=== PATIENT | male | born 1985 | race African-American/Black ===

== ENCOUNTER 2021-07-14 17:02 | Observation (INO) | payer BC ==
[2021-07-14 17:41] VITALS: BMI 30.7
[2021-07-14 20:56] LABS: BASO % 0.9 % (0-2.0); EOS % 3.2 % (0-4.5); HEMATOCRIT 42.3 % (35.4-49); HEMOGLOBIN 14.1 GM/dL (11.7-16.9); LYMPH % 27.6 % (8-40); MCHC 33.4 g/dl (32.0-35.9); MEAN CELL VOLUME 86.9 fl (80-96); MEAN PLT VOLUME 8.2 fl (7.5-11.1); MONO % 9.9 % (3.8-10.2); NEUT % 58.4 % (42.8-82.8); PLATELET COUNT 317 10^3/uL (134-434); RBC 4.86 M/mm3 (4.00-5.60); RDW 13.6 % (11.9-15.9); WHITE BLOOD COUNT 8.6 K/mm3 (4.0-10.0)
[2021-07-14 21:03] LABS: INR 1.52 (0.83-1.09); PROTHROMBIN TIME (PATIENT) 17.6 SEC (9.7-13.0)
[2021-07-14 21:06] LABS: ACTIVATED PTT 36.7 SECONDS (25.2-36.5)
[2021-07-14 21:48] LABS: CALCIUM 9.2 mg/dL (8.5-10.1)
[2021-07-14 21:49] LABS: ALBUMIN 3.8 g/dl (3.4-5.0); BLOOD UREA NITROGEN 10.3 mg/dL (7-18)
[2021-07-14 21:54] LABS: BILIRUBIN,TOTAL 0.5 mg/dL (0.2-1)
[2021-07-14 21:55] LABS: TOT PROT 7.7 g/dl (6.4-8.2)
[2021-07-14] MEDS ORDERED: ENOXAPARIN NA (PORCINE) 120 MG/0.8 ML DISP.SYRIN SQ SCH (22:45)
[2021-07-14] MEDS ORDERED: ENOXAPARIN NA (PORCINE) 100 MG/1 ML DISP.SYRIN SQ SCH (23:03)
[2021-07-15] MEDS ORDERED: ENOXAPARIN NA (PORCINE) 100 MG/1 ML DISP.SYRIN SQ SCH (00:55)
[2021-07-15] MEDS ORDERED: ENOXAPARIN NA (PORCINE) 100 MG/1 ML DISP.SYRIN SQ ONE (01:43)
[2021-07-15] MEDS: ENOXAPARIN NA (PORCINE) 100 MG/1 ML DISP.SYRIN SQ SCH ×4 (01:48→22:58)
[2021-07-15] MEDS ORDERED: RIVAROXABAN 15 MG TABLET PO SCH (11:00)
[2021-07-15 18:05] LABS: INR 1.51 (0.83-1.09); PROTHROMBIN TIME (PATIENT) 17.4 SEC (9.7-13.0)
[2021-07-16 08:34] LABS: BASO % 1.2 % (0-2.0); EOS % 4.4 % (0-4.5); HEMATOCRIT 39.4 % (35.4-49); HEMOGLOBIN 13.2 GM/dL (11.7-16.9); LYMPH % 31.9 % (8-40); MCH 28.8 pg (25.7-33.7); MCHC 33.4 g/dl (32.0-35.9); MEAN CELL VOLUME 86.2 fl (80-96); NEUT % 50.5 % (42.8-82.8); PLATELET COUNT 298 10^3/uL (134-434); RBC 4.57 M/mm3 (4.00-5.60); RDW 13.8 % (11.9-15.9); WHITE BLOOD COUNT 6.1 K/mm3 (4.0-10.0)
[2021-07-16 08:59] LABS: CALCIUM 8.7 mg/dL (8.5-10.1)
[2021-07-16 09:00] LABS: BLOOD UREA NITROGEN 10.3 mg/dL (7-18); MAGNESIUM 2.2 mg/dL (1.8-2.4)
[2021-07-16 09:03] LABS: PHOSPHOROUS 3.8 mg/dL (2.5-4.9)
[2021-07-16] MEDS: ENOXAPARIN NA (PORCINE) 100 MG/1 ML DISP.SYRIN SQ SCH ×2 (09:31→21:28)
[2021-07-17 08:35] LABS: BASO % 0.9 % (0-2.0); EOS % 3.8 % (0-4.5); LYMPH % 26.9 % (8-40); MCH 29.3 pg (25.7-33.7); MCHC 34.1 g/dl (32.0-35.9); MEAN PLT VOLUME 7.9 fl (7.5-11.1); MONO % 10.1 % (3.8-10.2); NEUT % 58.3 % (42.8-82.8); PLATELET COUNT 284 10^3/uL (134-434); RBC 4.77 M/mm3 (4.00-5.60); RDW 13.6 % (11.9-15.9); WHITE BLOOD COUNT 5.9 K/mm3 (4.0-10.0)
[2021-07-17 09:09] LABS: CALCIUM 9.2 mg/dL (8.5-10.1)
[2021-07-17 09:10] LABS: BLOOD UREA NITROGEN 9.4 mg/dL (7-18); MAGNESIUM 2.1 mg/dL (1.8-2.4)
[2021-07-17 09:13] LABS: CREATININE 1.1 mg/dL (0.55-1.3); PHOSPHOROUS 3.1 mg/dL (2.5-4.9)
[2021-07-17] MEDS: ENOXAPARIN NA (PORCINE) 100 MG/1 ML DISP.SYRIN SQ SCH ×2 (10:14→21:48)
[2021-07-18] MEDS ORDERED: LIDOCAINE HCL 1%, 10 MG/ML (20ML VIAL) ONE (07:49)
[2021-07-18] MEDS ORDERED: HEPARIN NA (PORCINE) 5,000 UNITS/ML 1ML VIAL ONE (07:50)
[2021-07-18 09:05] LABS: BASO % 0.8 % (0-2.0); EOS % 3.3 % (0-4.5); HEMATOCRIT 41.7 % (35.4-49); HEMOGLOBIN 13.9 GM/dL (11.7-16.9); MCHC 33.4 g/dl (32.0-35.9); MEAN CELL VOLUME 86.9 fl (80-96); MEAN PLT VOLUME 8.4 fl (7.5-11.1); MONO % 9.4 % (3.8-10.2); NEUT % 57.5 % (42.8-82.8); PLATELET COUNT 305 10^3/uL (134-434); RBC 4.79 M/mm3 (4.00-5.60); RDW 13.7 % (11.9-15.9); WHITE BLOOD COUNT 5.9 K/mm3 (4.0-10.0)
[2021-07-18] MEDS: ENOXAPARIN NA (PORCINE) 100 MG/1 ML DISP.SYRIN SQ SCH ×2 (09:12→22:13)
[2021-07-18 09:49] LABS: CALCIUM 9.1 mg/dL (8.5-10.1)
[2021-07-18 09:50] LABS: BLOOD UREA NITROGEN 10.9 mg/dL (7-18); MAGNESIUM 2.1 mg/dL (1.8-2.4)
[2021-07-18 09:52] LABS: PHOSPHOROUS 3.7 mg/dL (2.5-4.9)
[2021-07-18 10:07] LABS: PROTEIN S FREE 23 % (61-136)
[2021-07-19 08:43] LABS: HEMATOCRIT 41.6 % (35.4-49); HEMOGLOBIN 13.7 GM/dL (11.7-16.9); MCH 28.6 pg (25.7-33.7); MCHC 32.8 g/dl (32.0-35.9); MEAN CELL VOLUME 87.2 fl (80-96); MEAN PLT VOLUME 8.1 fl (7.5-11.1); PLATELET COUNT 281 10^3/uL (134-434); RBC 4.78 M/mm3 (4.00-5.60); RDW 13.6 % (11.9-15.9); WHITE BLOOD COUNT 5.6 K/mm3 (4.0-10.0)
[2021-07-19 08:58] LABS: CALCIUM 9.1 mg/dL (8.5-10.1)
[2021-07-19 08:59] LABS: BLOOD UREA NITROGEN 11.7 mg/dL (7-18); MAGNESIUM 2.1 mg/dL (1.8-2.4)
[2021-07-19 09:02] LABS: PHOSPHOROUS 3.4 mg/dL (2.5-4.9)
[2021-07-19 10:59] LABS: ANISOCYTOSIS 0; HELMET CELLS 0; HOWELL-JOLLY BODIES 0; MACROCYTOSIS 0; OVALOCYTE 0; ROULEAU 0; SICKELED CELLS 0; TARGET CELLS 0; TEAR DROP CELLS 0; TOXIC GRANULATION 0
[2021-07-19] MEDS: ENOXAPARIN NA (PORCINE) 100 MG/1 ML DISP.SYRIN SQ SCH ×2 (11:45→22:58)
[2021-07-20 08:30] LABS: BASO % 0.7 % (0-2.0); EOS % 3.5 % (0-4.5); HEMATOCRIT 40.8 % (35.4-49); HEMOGLOBIN 14.1 GM/dL (11.7-16.9); LYMPH % 32.9 % (8-40); MCH 29.5 pg (25.7-33.7); MCHC 34.5 g/dl (32.0-35.9); MEAN CELL VOLUME 85.6 fl (80-96); MEAN PLT VOLUME 7.9 fl (7.5-11.1); MONO % 10.5 % (3.8-10.2); NEUT % 52.4 % (42.8-82.8); PLATELET COUNT 270 10^3/uL (134-434); RBC 4.77 M/mm3 (4.00-5.60); RDW 13.6 % (11.9-15.9); WHITE BLOOD COUNT 5.7 K/mm3 (4.0-10.0)
[2021-07-20 08:42] LABS: CALCIUM 9.1 mg/dL (8.5-10.1)
[2021-07-20 08:46] LABS: CREATININE 1.1 mg/dL (0.55-1.3); PHOSPHOROUS 3.5 mg/dL (2.5-4.9)
[2021-07-20] MEDS: ENOXAPARIN NA (PORCINE) 100 MG/1 ML DISP.SYRIN SQ SCH ×2 (09:22→22:53)
[2021-07-21 09:30] LABS: BASO % 0.9 % (0-2.0); EOS % 3.3 % (0-4.5); HEMATOCRIT 40.2 % (35.4-49); HEMOGLOBIN 13.9 GM/dL (11.7-16.9); LYMPH % 33.3 % (8-40); MCH 29.8 pg (25.7-33.7); MCHC 34.6 g/dl (32.0-35.9); MEAN PLT VOLUME 8.2 fl (7.5-11.1); MONO % 10.5 % (3.8-10.2); PLATELET COUNT 263 10^3/uL (134-434); RBC 4.68 M/mm3 (4.00-5.60); RDW 13.7 % (11.9-15.9); WHITE BLOOD COUNT 6.3 K/mm3 (4.0-10.0)
[2021-07-21 09:53] LABS: BLOOD UREA NITROGEN 16.1 mg/dL (7-18); CALCIUM 8.8 mg/dL (8.5-10.1)
[2021-07-21 09:55] LABS: PHOSPHOROUS 3.8 mg/dL (2.5-4.9)
[2021-07-21 09:56] LABS: CREATININE 1.2 mg/dL (0.55-1.3)
[2021-07-21] MEDS ORDERED: HEPARIN NA (PORCINE) 5,000 UNITS/ML 1ML VIAL ONE ×2 (12:37→14:41)
[2021-07-21] MEDS ORDERED: LIDOCAINE HCL 1%, 10 MG/ML (20ML VIAL) ONE (12:37)
[2021-07-21] MEDS ORDERED: LIDOCAINE HCL 1%, 10 MG/ML (20ML VIAL) NR ONE ×3 (13:17→14:16)
[2021-07-21] MEDS ORDERED: HEPARIN NA (PORCINE) 5,000 UNITS/ML 1ML VIAL SQ ONE ×2 (13:28→14:18)
[2021-07-21] MEDS ORDERED: PROPOFOL 20 ML ONE ×2 (13:43→13:44)
[2021-07-21] MEDS ORDERED: ROCURONIUM BROMIDE 50 MG/5 ML SYRINGE ONE ×2 (13:43)
[2021-07-21] MEDS ORDERED: MIDAZOLAM HCL 2 MG/2 ML SINGLE DOSE VIAL ONE ×4 (13:44→14:13)
[2021-07-21] MEDS ORDERED: IOHEXOL 300 MG/ML INFUS..BTL IV ONE (14:20)
[2021-07-21] MEDS ORDERED: ALTEPLASE (CATHFLO) 2 MG/2 ML VIAL CVP ONE (15:00)
[2021-07-21] MEDS ORDERED: ONDANSETRON 4 MG/2 ML VIAL IVPUSH PRN (16:03)
[2021-07-21] MEDS ORDERED: ACETAMINOPHEN INJECTION 100 ML IVPB ONE (17:44)
[2021-07-21] MEDS ORDERED: HYDROmorphone HCl 2 MG/ML VIAL ONE (17:44)
[2021-07-21] MEDS ORDERED: ACETAMINOPHEN 1000 MG/100 ML BAG IVPB PRN (18:41)
[2021-07-21] MEDS ORDERED: HYDROmorphone HCl 2 MG/ML VIAL IVPUSH PRN ×2 (18:41→18:42)
[2021-07-21] MEDS: oxyCODONE HCL 5 MG TABLET PO PRN (21:11)
[2021-07-21] MEDS: LACTATED RINGERS SOLUTION 1,000 ML IV SCH (22:51)
[2021-07-22 02:50] LABS: EPI CELLS 0 /uL (0-25.1); HYALINE CASTS 0 /uL (0-3.1); URINE APPEARANCE CLEAR; URINE BACTERIA 3 /uL (0-1359); URINE BILIRUBIN NEGATIVE (NEGATIVE); URINE COLOR YELLOW; URINE GLUCOSE (UA) NEGATIVE (NEGATIVE); URINE KETONE NEGATIVE (NEGATIVE); URINE LEUK ESTERASE NEGATIVE (NEGATIVE); URINE NITRITE NEGATIVE (NEGATIVE); URINE PROTEIN TRACE (NEGATIVE); URINE RBC 20 /uL (0-23.9); URINE UROBILINOGEN 0.2 mg/dL (0.2-1.0); URINE WBC 1 /uL (0-25.8)
[2021-07-22 08:58] LABS: BASO % 0.6 % (0-2.0); EOS % 2.6 % (0-4.5); HEMATOCRIT 37.8 % (35.4-49); LYMPH % 22.1 % (8-40); MCH 29.5 pg (25.7-33.7); MCHC 34.4 g/dl (32.0-35.9); MEAN CELL VOLUME 85.8 fl (80-96); MEAN PLT VOLUME 8.2 fl (7.5-11.1); MONO % 10.7 % (3.8-10.2); PLATELET COUNT 204 10^3/uL (134-434); RBC 4.41 M/mm3 (4.00-5.60); RDW 13.4 % (11.9-15.9); WHITE BLOOD COUNT 8.1 K/mm3 (4.0-10.0)
[2021-07-22 09:19] LABS: CALCIUM 8.7 mg/dL (8.5-10.1); MAGNESIUM 1.9 mg/dL (1.8-2.4)
[2021-07-22 09:21] LABS: BLOOD UREA NITROGEN 13.2 mg/dL (7-18)
[2021-07-22 09:24] LABS: PHOSPHOROUS 4.5 mg/dL (2.5-4.9)
[2021-07-22] MEDS: oxyCODONE HCL 5 MG TABLET PO PRN (09:56)
[2021-07-22] MEDS ORDERED: ENOXAPARIN NA (PORCINE) 100 MG/1 ML DISP.SYRIN SQ SCH (11:45)
[2021-07-22 14:30] VITALS: BP 125/60; PULSE 96; TEMP 98.8
[2021-07-22] MEDS: LACTATED RINGERS SOLUTION 1,000 ML IV SCH (17:45)
[2021-07-22] MEDS ORDERED: ENOXAPARIN NA (PORCINE) 100 MG/1 ML DISP.SYRIN SQ ONE (18:56)
== END 2021-07-22 19:40 | disposition home or self-care (01) ==
LOC: JER 17:02 → JERBED 22:41 → J7W 07-15 06:04
PROVIDERS: ADMIT Internal Medicine; ATTEND Internal Medicine
PROC: 047N3ZZ Dilation of Left Popliteal Artery, Percutaneous Approach (ICD-10-PCS; principal; 2021-07-14)
PROC: 04FN3Z0 Fragmentation of Left Popliteal Artery, Percutaneous Approach, Ultrasonic (ICD-10-PCS; 2021-07-14)
PROC: 3E033NZ Introduction of Analgesics, Hypnotics, Sedatives into Peripheral Vein, Percutaneous Approach (ICD-10-PCS; 2021-07-14)
PROC: 3E023GC Introduction of Other Therapeutic Substance into Muscle, Percutaneous Approach (ICD-10-PCS; 2021-07-14)
DX: I82.409 Acute embolism and thrombosis of unspecified deep veins of unspecified lower extremity (principal); Z86.718 Personal history of other venous thrombosis and embolism; E66.9 Obesity, unspecified; Z68.30 Body mass index [BMI] 30.0-30.9, adult; D68.59 Other primary thrombophilia; Z91.14 Patient's other noncompliance with medication regimen
CPT/HCPCS: 0505T; 36593; 96372; 96374; 96375; 36415; 71046-TC-FY; 71275-TC; 76000-TC-FY; 80048; 80053; 81003; 83735; 84100; 84484; 85025; 85305; 85306; 85610; 85730; 93005; 93010; 93971-TC; 94760; 99285-25; C9803-CS; G0378; J1644; J2997; Q9967; U0003; U0005

== ENCOUNTER 2022-08-13 20:50 | Inpatient (IN) | payer BC ==
[2022-08-13] MEDS ORDERED: SULFAMETHOXAZOLE/TRIMETHOPRIM 800MG/160MG D.S. TABLET PO ONE (22:29)
[2022-08-13] MEDS ORDERED: SULFAMETHOXAZOLE/TRIMETHOPRIM 800MG/160MG D.S. TABLET ONE (22:36)
[2022-08-13 23:21] LABS: HEMATOCRIT 52.3 % (35.4-49); HEMOGLOBIN 17.4 G/dL (11.7-16.9); MCHC 33.2 g/dl (32.0-35.9); MEAN CELL VOLUME 90.5 fl (80-96); MEAN PLT VOLUME 8.5 fl (7.5-11.1); RBC 5.78 10^6/uL (4.00-5.60); RDW 14.4 % (11.9-15.9); WHITE BLOOD COUNT 7.9 10^3/uL (4.0-10.8)
[2022-08-13 23:25] LABS: INR 1.19 (0.83-1.09); PROTHROMBIN TIME (PATIENT) 13.7 SEC (9.7-13.0)
[2022-08-13 23:31] LABS: ALBUMIN 4.3 g/dl (3.4-5.0); BILIRUBIN,TOTAL 0.2 mg/dl (0.2-1); CALCIUM 9.6 mg/dl (8.5-10); POTASSIUM 3.5 mmol/L (3.5-5.1); TOT PROT 7.8 g/dl (6.4-8.2)
[2022-08-14] MEDS ORDERED: HEPARIN NA (PORCINE) 5,000 UNITS/ML 1ML VIAL IVPUSH PRN ×3 (01:40→11:11)
[2022-08-14] MEDS ORDERED: HEPARIN SOD,PORK IN 0.45% NACL 25,000 UNITS/500 ML INFUS.BAG IVPB SCH (01:45)
[2022-08-14] MEDS ORDERED: HEPARIN INFUSION - 25,000 UNITS/500 ML INFUS.BAG IVPB ONE (03:33)
[2022-08-14] MEDS ORDERED: HEPARIN NA (PORCINE) 5,000 UNITS/ML 1ML VIAL ONE (03:51)
[2022-08-14 04:30] VITALS: BMI 34.2
[2022-08-14] MEDS ORDERED: traMADol HCL 50 MG TABLET PO ONE (06:04)
[2022-08-14 07:41] LABS: ALBUMIN 3.8 g/dl (3.4-5.0); BILIRUBIN,TOTAL 0.4 mg/dl (0.2-1); CALCIUM 8.8 mg/dl (8.5-10); POTASSIUM 3.6 mmol/L (3.5-5.1)
[2022-08-14] MEDS ORDERED: ACETAMINOPHEN 1000 MG/100 ML BAG IVPB PRN (08:01)
[2022-08-14] MEDS ORDERED: ENOXAPARIN NA (PORCINE) 100 MG/1 ML DISP.SYRIN SQ SCH (10:00)
[2022-08-14 10:21] LABS: HEMATOCRIT 43.8 % (35.4-49); HEMOGLOBIN 15.2 GM/dL (11.7-16.9); MCH 29.5 pg (25.7-33.7); MCHC 34.7 g/dl (32.0-35.9); MEAN CELL VOLUME 85.2 fl (80-96); MEAN PLT VOLUME 8.4 fl (7.5-11.1); PLATELET COUNT 239 10^3/uL (134-434); RBC 5.14 M/mm3 (4.00-5.60); RDW 13.8 % (11.9-15.9); WHITE BLOOD COUNT 6.2 K/mm3 (4.0-10.0)
[2022-08-14 10:37] LABS: BASO % 0.8 % (0-2.0); EOS % 2.6 % (0-4.5); LYMPH % 37.9 % (8-40); MONO % 9.6 % (3.8-10.2); NEUT % 49.1 % (42.8-82.8)
[2022-08-14] MEDS ORDERED: HEPARIN NA (PORCINE) 5,000 UNITS/ML 1ML VIAL IVPUSH ONE (11:11)
[2022-08-14] MEDS ORDERED: HEPARIN INFUSION - 25,000 UNITS/500 ML INFUS.BAG IVPB SCH (11:15)
[2022-08-14] MEDS: HEPARIN NA (PORCINE) 5,000 UNITS/ML 1ML VIAL IVPUSH PRN (20:31)
[2022-08-15 02:25] VITALS: RESP 18
[2022-08-15 03:27] LABS: BASO % 0.7 % (0-2.0); EOS % 2.5 % (0-4.5); HEMATOCRIT 45.1 % (35.4-49); HEMOGLOBIN 15.3 GM/dL (11.7-16.9); LYMPH % 38.6 % (8-40); MCH 29.2 pg (25.7-33.7); MCHC 33.8 g/dl (32.0-35.9); MEAN CELL VOLUME 86.3 fl (80-96); MEAN PLT VOLUME 8.2 fl (7.5-11.1); MONO % 9.7 % (3.8-10.2); NEUT % 48.5 % (42.8-82.8); PLATELET COUNT 249 10^3/uL (134-434); RBC 5.23 M/mm3 (4.00-5.60); RDW 13.9 % (11.9-15.9); WHITE BLOOD COUNT 6.8 K/mm3 (4.0-10.0)
[2022-08-15 03:28] LABS: POTASSIUM 3.8 mmol/L (3.5-5.1)
[2022-08-15 03:30] LABS: ALBUMIN 3.5 g/dl (3.4-5.0); CALCIUM 8.8 mg/dL (8.5-10.1)
[2022-08-15 03:35] LABS: BILIRUBIN,TOTAL 0.3 mg/dL (0.2-1); TOT PROT 6.9 g/dl (6.4-8.2)
[2022-08-15] MEDS: HEPARIN NA (PORCINE) 5,000 UNITS/ML 1ML VIAL IVPUSH PRN (04:56)
[2022-08-15] MEDS ORDERED: RIVAROXABAN 20 MG TABLET PO ONE (10:38)
[2022-08-15] MEDS ORDERED: WARFARIN NA 5 MG TABLET PO ONE (11:11)
[2022-08-15] MEDS ORDERED: traMADol HCL 50 MG TABLET PO ONE (11:11)
[2022-08-15 11:41] VITALS: BP 105/58; PULSE 78; TEMP 98.6
== END 2022-08-15 13:28 | disposition home or self-care (01) | DRG 300 ==
LOC: FER 20:50 → FM/S 08-14 02:10
PROVIDERS: ADMIT Internal Medicine
DX: I82.413 Acute embolism and thrombosis of femoral vein, bilateral (principal); D68.59 Other primary thrombophilia; L97.929 Non-pressure chronic ulcer of unspecified part of left lower leg with unspecified severity; E66.9 Obesity, unspecified; Z68.34 Body mass index [BMI] 34.0-34.9, adult
CPT/HCPCS: 0241U-QW; 36415; 71045-TC-FY; 71275-TC; 80053; 85025; 85027; 85610; 85730; 87070; 87186; 87205; 93005; 93970-TC; 99285-25; J1644; Q9967